=== PATIENT | female | born 1975 | race Caucasian/White ===

== ENCOUNTER 2018-05-03 10:28 | Emergency (ER) | payer OTHER ==
[~2018-05-03] VITALS: Ht 160 cm; Wt 76.7 kg
[~2018-05-03 10:28] MED LIST: HYDR-3498 PO; IBUP100O28 PO; ONDA4TAB35 PO; TAMS-14 PO
[2018-05-03 11:01] VITALS: Ht 160 cm; Wt 76.7 kg
--- NOTE | 2018-05-03 11:46 | ERD ---
ER Documentation Chief Complaint Chief Complaint vaginal bleeding 11 days, unk HPI 42-year-old female presents due to vaginal bleeding. States that she got her period on the and she has been bleeding since then. States that she is been going through 6-7 tampons a day and passing clots. She is unsure whether she is . Also states that she has some dysuria but denies any vaginal discharge. In addition she states she is been having some lower pelvic pain. States that she has a family history of uterine cancer on her mother's side. Denies any lightheadedness, syncope, fevers, back pain, nausea, vomiting, diarrhea. Denies past medical history. Denies allergies. Denies medications. Denies surgeries. Denies alcohol, tobacco, drug use. Up to date on vaccines. ROS All systems reviewed and are negative except as per history of present illness. Medications Home Meds Active Scripts Ibuprofen* (Motrin*) 600 Mg Tab, 600 MG PO Q6 for pain/metrorrhagia, #30 TAB Prov:MATTHEW WILKINS 05/03/18 Ibuprofen (Ibuprofen) 100 Mg/5 Ml Oral.susp, 600 MG PO Q6H PRN for PAIN, #20 ML Prov:AZAELCMELOY 12/03/14 Tamsulosin Hcl* (Flomax*) 0.4 Mg Cap.er.24h, 0.4 MG PO DAILY, #6 CAP Prov:CM ADDISONSON 12/03/14 Ondansetron Hcl* (Zofran* ODT) 4 mg -ODT Tab.disper, 4 MG PO Q4H PRN for NAUSEA AND OR VOMITING, #20 TAB Prov:CM ADDISONSON 12/03/14 Hydrocodone Bit-Acetaminophen* (Hooper*) 5-325 Mg Tab, 1 TAB PO Q4H PRN for PAIN, #20 TAB Prov:AZAELELOY 12/03/14 Allergies Allergies: Coded Allergies: No Known Allergy (Unverified , 12/03/14) PMhx/Soc History of Surgery: Yes (TUBAL LIGATION 2002) Anesthesia Reaction: No Hx Neurological Disorder: No Hx Respiratory Disorders: No Hx Cardiac Disorders: No Hx Psychiatric Problems: Yes (HX OF DEPRESSION BUT NOT CURRENT) Hx Miscellaneous Medical Probl: No Hx Alcohol Use: Yes Hx Substance Use: No Hx Tobacco Use: Yes FmHx Family History: No diabetes, No coronary disease, No other Physical Exam Vitals Vital Signs Date Temp Pulse Resp B/P (MAP) Pulse Ox O2 O2 Flow FiO2 Time Delivery Rate 05/03/18 97.3 88 18 98 11:01 Physical Exam Const: No acute distress Head: Atraumatic Eyes: Normal Conjunctiva ENT: Normal External Ears, Nose and Mouth. Neck: Full range of motion. No meningismus. Resp: Clear to auscultation bilaterally Cardio: Regular rate and rhythm, no murmurs Abd: Tenderness to palpation in the suprapubic area bilaterally. Skin: No petechiae or rashes Back: No midline or flank tenderness Ext: No cyanosis, or edema Neur: Awake and alert Psych: Normal Mood and Affect Result Diagram: 05/03/18 1143 05/03/18 1143 Results 24 hrs Laboratory Tests Test 05/03/18 11:43 White Blood Count 9.8 10^3/ul Red Blood Count 4.58 10^6/ul Hemoglobin 13.7 g/dl Hematocrit 41.2 % Mean Corpuscular Volume 90.0 fl Mean Corpuscular Hemoglobin 29.9 pg Mean Corpuscular Hemoglobin Concent 33.3 g/dl Red Cell Distribution Width 13.7 % Platelet Count 338 10^3/UL Mean Platelet Volume 9.4 fl Immature Granulocytes % 0.400 % Neutrophils % 55.7 % Lymphocytes % 35.0 % Monocytes % 7.2 % Eosinophils % 1.3 % Basophils % 0.4 % Nucleated Red Blood Cells % 0.0 /100WBC Immature Granulocytes # 0.040 10^3/ul Neutrophils # 5.5 10^3/ul Lymphocytes # 3.4 10^3/ul Monocytes # 0.7 10^3/ul Eosinophils # 0.1 10^3/ul Basophils # 0.0 10^3/ul Nucleated Red Blood Cells # 0.0 10^3/ul Prothrombin Time 11.6 Sec Prothrombin Time Ratio 0.9 INR International Normalized Ratio 0.84 Activated Partial Thromboplast Time 29.4 Sec Urine Color YELLOW Urine Clarity CLEAR Urine pH 6.0 Urine Specific [place] 1.020 Urine Ketones NEGATIVE mg/dL Urine Nitrite NEGATIVE mg/dL Urine Bilirubin NEGATIVE mg/dL Urine Urobilinogen NEGATIVE mg/dL Urine Leukocyte Esterase NEGATIVE Yg/ul Urine Microscopic RBC 77 /HPF Urine Microscopic WBC 1 /HPF Urine Squamous Epithelial Cells FEW /HPF Urine Mucus FEW /HPF Urine Hemoglobin 3+ mg/dL Urine Glucose NEGATIVE mg/dL Urine Total Protein NEGATIVE mg/dl Sodium Level 140 mmol/L Potassium Level 4.3 mmol/L Chloride Level 103 mmol/L Carbon Dioxide Level 28 mmol/L Anion Gap 9 Blood Urea Nitrogen 11 mg/dl Creatinine 0.62 mg/dl Est Glomerular Filtrat Rate mL/min > 60 mL/min Glucose Level 96 mg/dl Calcium Level 9.2 mg/dl Total Bilirubin 0.4 mg/dl Direct Bilirubin 0.00 mg/dl Indirect Bilirubin 0.4 mg/dl Aspartate Amino Transf (AST/SGOT) 27 IU/L Alanine Aminotransferase (ALT/SGPT) 44 IU/L Alkaline Phosphatase 86 IU/L Total Protein 7.3 g/dl Albumin 4.2 g/dl Globulin 3.10 g/dl Albumin/Globulin Ratio 1.35 POC Beta HCG, Qualitative NEGATIVE Current Medications Medications Dose Sig/Jonel Start Time Status Last (Trade) Ordered Route PRN Stop Time Admin Dose Reason Admin Ibuprofen 600 mg ONCE ONCE 05/03/18 DC 05/03/18 (Motrin) PO 12:00 11:47 05/03/18 12:01 Procedures/MDM DIAGNOSTIC IMAGING REPORT Patient: GIUSEPPE ROGERS : 1975 Age: 42 Sex: F MR #: [id number] DOS: 05/03/18 1134 Ordering MD: MATTHEW WILKINS Location: [facility] Room/Bed: PROCEDURE: US Pelvis CLINICAL INDICATION: Vaginal bleeding TECHNIQUE: Sonographic evaluation of the pelvis was performed utilizing both transabdominal and transvaginal technique. Curved array transabdominal transducer technique as well as a high frequency endovaginal probe was utilized. Images were reviewed on the high-resolution PACS workstation. COMPARISON: No prior studies are available for comparison. FINDINGS: The uterus is normal in size, echogenicity, and morphology measuring 9.7 x 5.2 x 6.1 cm in dimension. The endometrium is normal for a menstrual age female measuring 5.8 mm in diameter. The normal trilaminar stripe of the endometrium is preserved. The right ovary measures 3.2 x 2.3 x 2.9 cm in dimension. The left ovary measures 1.9 x 1.1 x 1.2 cm in dimension. There is a 2.9 cm simple appearing right ovarian cyst. Normal Doppler flow is demonstrated to both ovaries. There are no adnexal masses. There is no significant free fluid in the pelvis. IMPRESSION: 2.9 cm simple appearing right ovarian cyst. Otherwise, unremarkable pelvic ultrasound. RPTAT: .Pili Nix MD, MD Date Time Electronically viewed and signed by .Pili Nix MD, MD on 05/03/2018 13:10 .G/ CC: MATTHEW WILKINS [id number] ER course: CBC, CMP, PT PTT, UA, , pelvic ultrasound. 600 mg ibuprofen given. 42-year-old female presents due to vaginal bleeding. States that she got her period on the and she has been bleeding since then. States that she is been going through 6-7 tampons a day and passing clots. She is unsure whether she is . Also states that she has some dysuria but denies any vaginal discharge. In addition she states she is been having some lower pelvic pain. States that she has a family history of uterine cancer on her mother's side. Denies any lightheadedness, syncope, fevers, back pain, nausea, vomiting, diarrhea. Denies past medical history. Denies allergies. Denies medications. Denies surgeries. Denies alcohol, tobacco, drug use. Up to date on vaccines. All labs and imaging were within normal limits. I have low suspicion for ectopic based on results of US, hemodynamic stability, physical exam and patient history. I have low suspicion for septic , pyelonephritis, appendicitis, cholecystitis, bowel obstruction, ovarian torsion, symptomatic anemia, PID, surgical abdomen, or other life threatening conditions based on patient history, physical exam, and lab/imaging results. Patient's presentation is consistent with dysfunctional uterine bleeding, however since patient has family history of uterine cancer patient is advised to follow-up with her primary care for further evaluation. Patient discharged with strict ER p recautions. 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 All questions answered at discharge. Departure Diagnosis: Primary Impression: Vaginal bleeding Condition: Stable MATTHEW WILKINS May 03, 2018 11:46
[2018-05-03] MEDS ORDERED: IBUP-1542 PO (11:52)
[2018-05-03] MEDS ORDERED: IBUPROFEN 600 MG TAB PO ONE (12:00)
[2018-05-03 14:22] VITALS: BP 121/77; PULSE 82; RESP 16
== END 2018-05-03 14:24 | disposition home or self-care (01) ==
LOC: FTE 10:28
DX: N93.9 Abnormal uterine and vaginal bleeding, unspecified (principal); R10.2 Pelvic and perineal pain; Z87.891 Personal history of nicotine dependence
CPT/HCPCS: 76830; 76856; 80053; 81001; 81025; 85025; 85610; 85730; 87086; Z7502; Z7610